=== PATIENT | male | born 1970 | race Two or more races ===

== ENCOUNTER 2016-11-12 07:58 | Day surgery (SDC) | payer BC ==
--- NOTE | 2016-11-11 19:29 | Pre-op HX & Phy Repo 2 SIG ---
DATE OF ADMISSION: 11/12/2016 DATE OF SURGERY: 11/12/2016. REASON FOR ADMISSION: Gallstones. HISTORY OF PRESENT ILLNESS: This 46-year-old white male developed problems with upper abdominal pain one week ago while visiting in [facility]. He went to the [facility] emergency room where he was found to have gallstones. The patient returned to [place]. He went to [facility] emergency room five days ago where he underwent an extensive workup. He was found to have cholelithiasis. There were some elevation in his pancreatic enzymes and on ultrasound of the abdomen confirmed the presence of multiple gallstones. The gallbladder wall was measured at [address] scan of the abdomen was unremarkable. He underwent an MRI of the abdomen that is an MRCP, which showed no findings to suggest pancreatitis. There were no filling defects in the common bile duct. The patient has a history of gastric bypass in 2000. He underwent a revision of the bypass in 2008 at [facility]. MEDICATIONS: Glucophage 1000 mg b.i.d., Januvia 100 mg, enalapril 20 mg daily, metoprolol 25 mg b.i.d., Lipitor 20 mg daily, duloxetine 60 mg daily, and levothyroxine 0.125 mg daily. ALLERGIES: Vicodin. SOCIAL HISTORY: Tobacco, one half pack per day for 20 years. Alcohol, none. 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 FAMILY HISTORY: The patient's father of renal cell carcinoma. He had a history of hypertension. The patient's mother has heart disease. REVIEW OF SYSTEMS: Essentially negative. He has occasional headaches. PHYSICAL EXAMINATION: GENERAL: The patient is a well-developed and well-nourished white male, in no acute distress. HEENT: Normocephalic. Pupils are equal and reactive to light. There was no scleral icterus. NECK: Supple without adenopathy. LUNGS: Clear. HEART: Regular rhythm without murmurs or gallops. ABDOMEN: Abdomen was protuberant. There are healed laparoscopy scars. There was mild tenderness in the right upper quadrant. Munoz's sign was slightly positive in right upper quadrant. There were no palpable masses. EXTREMITIES: No clubbing, cyanosis, or edema. Peripheral pulses intact. IMPRESSION: 1. Symptomatic cholelithiasis. 2. Status post gastric bypass. PLAN: The patient will need to undergo a laparoscopic cholecystectomy, possible open cholecystectomy. The nature, risks and benefits of the procedure were explained. Deven Gary M.D. DR: RUBINA JOB#: [id number] CC:
[~2016-11-12] VITALS: Ht 190.5 cm; Wt 113.4 kg
[2016-11-12] VITALS (14 sets, daily range): BP systolic 113–143; BP diastolic 69–82
[~2016-11-12 07:58] MED LIST: CITALOPRAM HBR40 M1 ORAL; CYMBALTA60 MG ORAL; JANUVIA100 MG ORAL; LEVOTHYROXINE25 MCG ORAL; LIPITOR80 MG ORAL; METOPROLOL SUCC50 MG ORAL
[2016-11-12] MEDS ORDERED: ENALAPRIL MALEA20 MG ORAL (08:26)
--- NOTE | 2016-11-12 09:06 | Pre-Procedure Note/Attestation ---
Pre-Procedure Note/Attestation Complete Prior to Procedure Planned Procedure: not applicable Procedure Narrative: laparoscopic cholecystectomy, possible open cholecystectomy Indications for Procedure Pre-Operative Diagnosis: cholelithiasis Attestation I attest that I discussed the nature of the procedure; its benefits; risks and complications; and alternatives (and the risks and benefits of such alternatives ), prior to the procedure, with the patient (or the patient's legal retail customer service representative). I attest that, if there was a reasonable possibility of needing a blood transfusion, the patient (or the patient's legal retail customer service representative) was given the [facility] standardized written summary, pursuant to the Dicks[place] Blood Safety Act ([place] Health and Safety Code # 1645, as amended). I attest that I re-evaluated the patient just prior to the surgery and that there has been no change in the patient's H&P, except as documented below:none Deven Gary MD November 12, 2016 09:06
[2016-11-12] MEDS ORDERED: Propofol 10mg/ml 20ml IV ONE (09:15)
[2016-11-12] MEDS ORDERED: Morphine Sulfate 10mg/ml Inj ONE (09:45)
[2016-11-12] MEDS ORDERED: Succinylcholine 20mg/ml 10ml vial ONE (09:45)
[2016-11-12] MEDS ORDERED: Zemuron 50mg/5ml Inj IV ONE (09:45)
[2016-11-12] MEDS ORDERED: Midazolam 2mg/2ml Inj ONE (09:45)
[2016-11-12] MEDS ORDERED: Sterile Water Irrig 1000ml IRRIG ONE (09:45)
[2016-11-12] MEDS ORDERED: fentaNYL 100 mcg/2 mL IV ONE (09:45)
[2016-11-12] MEDS ORDERED: Ketorolac 30mg Inj ONE (09:45)
[2016-11-12] MEDS ORDERED: Labetalol 5mg/ml 20ml vial IV ONE (09:45)
[2016-11-12] MEDS ORDERED: LR 1000ml ONE (09:45)
[2016-11-12] MEDS ORDERED: NS Irrig 1000ml ONE (09:45)
[2016-11-12] MEDS ORDERED: Bupivacaine w/Epi 0.25% 30ml Vial INJ ONE (09:47)
[2016-11-12] MEDS ORDERED: LR 1000ml 1,000 ML IVLG SCH (10:37)
--- NOTE | 2016-11-12 10:37 | Anethesia Preoperative Eval ---
Anesthesia Pre-op PMH/ROS General Date of Evaluation: November 12, 2016 Time of Evaluation: 09:40 Anesthesiologist: Estrellita ASA Score: ASA 3 Mallampati Score Class I : Soft palate, uvula, fauces, pillars visible Class II: Soft palate, uvula, fauces visible Class III: Soft palate, base of uvula visible Class IV: Only hard plate visible Mallampati Classification: Class III Surgeon: Abdirahman Diagnosis: Symptomatic cholelithyasis Surgical Procedure: Laparoscopic cholecystectomy Anesthesia History: none Family History: no anesthesia problems Allergies: Coded Allergies: ACETAMINOPHEN (Verified Allergy, Severe, stomach upset, head spinning, 11/11) HYDROCODONE (Verified Allergy, Severe, stomach upset, head spinning, ) Medications: see eMAR Past Medical History Cardiovascular: Reports: HTN, Denies: CAD, [place], arrhythmia, other, valve dz Pulmonary: Reports: SAM, Denies: COPD, asthma, other Gastrointestinal/Genitourinary: Reports: GERD, Denies: CRI, ESRD, other Neurologic/Psychiatric: Denies: CVA, TIA, dementia, depression/anxiety, other Endocrine: Reports: DM - poorly controled, hypothyroidism, Denies: other, steroids HEENT: Denies: [place] (L), [place] (R), cataract (L), cataract (R), glaucoma, other Hematology/Immune: Reports: anemia, Denies: DVT, bleeding disorder, other Musculoskeletal/Integumentary: Denies: DDD, DJD, OA, RA, edema, other Other: obesity PMH Narrative: as above PSxH Narrative: Gastric bypass Anesthesia Pre-op Phys. Exam Physician Exam Last Vital Signs Date Time Temp Pulse Resp B/P Pulse Ox O2 Delivery O2 Flow Rate FiO2 11/12/16 08:20 98.6 73 24 119/79 100 Room Air Constitutional: NAD Neurologic: CN 2-12 intact Cardiovascular: RRR, no M/R/G Respiratory: CTA Gastrointestinal: other - obesity Airway Exam Mallampati Score: Class III MO: limited Neck: short ROM: full Teeth: intact Dentures: no lower, no upper Anesthesia Pre-op A/P Labs see chart Studies Pre-op Studies: EKG - NSR Risk Assessment & Plan Assessment: ASA 3 Plan: GA with ETT Status Change Before Surgery: No Pre-Antibiotics Drug: Ancef 2 gr. Given Within 1 Hr of Incision: Yes Time Given: 10:05 MATT VELEZ M.D. November 12, 2016 10:37
[2016-11-12] MEDS ORDERED: Meperidine 25mg/0.5ml Inj IV PRN (10:45)
[2016-11-12] MEDS ORDERED: Hydromorphone 0.5mg/0.5ml inj IVP PRN (10:45)
[2016-11-12] MEDS ORDERED: Ketorolac 30mg Inj IV PRN (10:45)
[2016-11-12] MEDS ORDERED: Midazolam 2mg/2ml Inj IVP PRN (10:45)
--- NOTE | 2016-11-12 11:24 | Immediate Post-Op Evaluation ---
Immediate Post-Op Evalulation Immediate Post-Op Evalulation Procedure: Laparoscopic cholecystectomy Date of Evaluation: November 12, 2016 Time of Evaluation: 11:23 IV Fluids: 1200 Blood Products: none Estimated Blood Loss: min Urinary Output: none Blood Pressure Systolic: 116 Blood Pressure Diastolic: 54 Pulse Rate: 82 Respiratory Rate: 20 O2 Sat by Pulse Oximetry: 98 Temperature (Fahrenheit): 98.4 Pain Score (1-10): 2 Nausea: No Vomiting: No Complications none Patient Status: reacts, patent, extubated, none Hydration Status: adequate MATT VELEZ M.D. November 12, 2016 11:24
--- NOTE | 2016-11-12 11:28 | Brief Operative Note ---
Immediate Post Operative Note Operative Note Pre-op Diagnosis: cholelithiasis Procedure: laparoscopic cholecystectomy Post-op Diagnosis: cholelithiasis Surgeon: Arturo Gary MD Hardware Design Engineer: Eliazar Bates MD Anesthesiologist: Sheron Haro MD Anesthesia: general Specimen: yes Complications: none Condition: stable Estimated Blood Loss: minimal Drains: none Implant(s) used?: No Deven Gary MD November 12, 2016 11:28
[2016-11-12] MEDS ORDERED: Norco 5mg/325mg tab ORAL PRN (11:30)
[2016-11-12] MEDS ORDERED: HYDROmorphone 1mg/ml Carpuject SUBQ PRN (11:30)
--- NOTE | 2016-11-12 12:07 | 48 Hour Post Anesthesia Eval ---
Post Anesthesia Evaluation Procedure: Laparoscopic cholecystectomy Date of Evaluation: November 12, 2016 Time of Evaluation: 12:06 Blood Pressure Systolic: 118 0: 74 Pulse Rate: 78 Respiratory Rate: 20 Temperature (Fahrenheit): 97.6 O2 Sat by Pulse Oximetry: 98 Airway: patent Nausea: No Vomiting: No Pain Intensity: 2 Hydration Status: adequate Cardiopulmonary Status: stable Mental Status/LOC: patient returned to baseline Follow-up Care/Observations: n/a Post-Anesthesia Complications: none Follow-up care needed: ready to discharge MATT VELEZ M.D. November 12, 2016 12:07
[2016-11-12] MEDS ORDERED: Meperidine 50mg/ml Inj IVP PRN (12:45)
[2016-11-12] MEDS ORDERED: D5 1/2NS 1,000 ML IV SCH (16:01)
--- NOTE | 2016-11-12 18:39 | Operative Note - Dictated ---
DATE OF OPERATION: 11/12/2016 PREOPERATIVE DIAGNOSES: Cholelithiasis and history of pancreatitis. POSTOPERATIVE DIAGNOSES: Cholelithiasis and history of pancreatitis. PROCEDURE: Laparoscopic cholecystectomy. SURGEON: Deven Gary M.D. TUMBLING AND ROLLING SUPERVISOR: Zulma Bates M.D. ANESTHESIA: General endotracheal. ANESTHESIOLOGIST: Que Haro M.D. INDICATIONS FOR SURGERY: This 46-year-old, white male developed problems with upper abdominal pain approximately nine days ago. He was seen in the [facility] emergency room six days ago where studies revealed cholelithiasis. There was some elevation of serum lipase. He underwent an MRCP from the emergency room that showed no filling defects in the common bile duct. There were no changes anatomically to suggest acute pancreatitis. The patient's pain improved as he was kept on a low fat diet. He was advised to undergo a laparoscopic cholecystectomy. The nature, risks, and benefits of the procedure were explained. OPERATIVE FINDINGS: Exploration of the abdominal cavity revealed no ascites. There were some adhesions in the left upper quadrant from a previous gastric bypass. There were some small adhesions from the omentum to the undersurface of the right lobe of the liver. The gallbladder had a pliable wall. There were multiple stones in the gallbladder. The cystic duct was not dilated. No abnormalities are noted on the small bowel. There was evidence of a right inguinal hernia present. OPERATIVE TECHNIQUE: With the patient in the supine position after induction of adequate general endotracheal anesthesia, the abdomen was prepped and draped in sterile fashion. A time-out was called. A small transverse incision was made just above the umbilicus. A Veress needle was introduced into the abdominal cavity. The intraperitoneal position was confirmed by saline instillation and the drop test. The abdomen was insufflated with 5 liters of carbon dioxide. The Veress needle was removed. A 5 mm trocar was introduced. The abdomen was inspected with a 30-degree angle 5 mm laparoscope and an 11 mm trocar was introduced in the subxiphoid region slightly to the right of the midline. Two 5 mm ports were introduced in the right mid abdomen, one near the anterior axillary line and one near the midclavicular line. Through the lateral 5 mm port, a ratcheted grasper was used to elevate the fundus of the gallbladder. Numerous omental adhesions to the undersurface of the right lobe of the liver were taken down by electrocautery and sharp dissection. The neck of the gallbladder was then grasped through the 5 mm port with the help of the ratcheted grasper. The peritoneum along the neck of the gallbladder was carefully incised with electrocautery and blunt dissection. The portal structures were identified. The cystic artery was dissected away from the cystic duct. The cystic artery was doubly hemoclipped and divided. The cystic duct was then identified. The lateral peritoneal attachments to the neck of the gallbladder were incised with electrocautery in order to gain greater mobility onto the cystic duct. With the cystic duct dissected, the structure was doubly hemoclipped and divided. The gallbladder was removed from the liver bed by blunt dissection and electrocautery. The gallbladder was removed through the subxiphoid port with the help of an EndoCatch apparatus. The abdomen was again inspected. There was no evidence of hemorrhage from the liver bed. The subhepatic space was irrigated and aspirated. There was no evidence of hemorrhage nor bile leak. The lower abdomen was inspected by passing the laparoscope through the subxiphoid port. The trocars were removed under laparoscopic visualization. The pneumoperitoneum was reversed. The subxiphoid incision was closed with an 0 Vicryl fascial suture followed by a running 4-0 Monocryl subcuticular stitch. The remaining 5 mm incisions were closed with interrupted 4-0 Monocryl subcuticular sutures. The puncture wounds were injected with 0.25 Marcaine with epinephrine solution. Sterile dressings were applied. The patient tolerated the procedure well and was returned to the recovery room in stable condition. Estimated blood loss was less than 10 mL. Deven Gary M.D. DR: HILARY JOB#: [id number] CC:
== END 2016-11-12 14:05 | disposition home or self-care (01) ==
LOC: SUR 07:58
DX: K80.10 Calculus of gallbladder with chronic cholecystitis without obstruction (principal); E11.40 Type 2 diabetes mellitus with diabetic neuropathy, unspecified; Z79.84 Long term (current) use of oral hypoglycemic drugs; I10 Essential (primary) hypertension; E03.9 Hypothyroidism, unspecified; D64.9 Anemia, unspecified; K21.9 Gastro-esophageal reflux disease without esophagitis; G47.33 Obstructive sleep apnea (adult) (pediatric); F32.9 Major depressive disorder, single episode, unspecified; E66.9 Obesity, unspecified; Z68.33 Body mass index [BMI] 33.0-33.9, adult; F17.210 Nicotine dependence, cigarettes, uncomplicated; Z98.84 Bariatric surgery status; Z88.6 Allergy status to analgesic agent; Z88.5 Allergy status to narcotic agent
CPT/HCPCS: 47562; 82962; J0330; J0690; J1885; J2250; J2270; J2704; J3010; J7120; 94003; 94150

== ENCOUNTER 2017-01-12 07:19 | Day surgery (SDC) | payer BC ==
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
[2017-01-12] VITALS (10 sets, daily range): BP systolic 110–136; BP diastolic 64–81
[~2017-01-12] VITALS: Ht 190.5 cm; Wt 113.4 kg
[~2017-01-12 07:19] MED LIST changes: +ENALAPRIL MALEA20 MG ORAL
[2017-01-12] MEDS ORDERED: LR 1000ml 1,000 ML IV SCH (07:45)
[2017-01-12] MEDS ORDERED: GLUCOPHAGE1000 MG ORAL (07:58)
[2017-01-12] MEDS ORDERED: LR 1000ml 1,000 ML IVLG SCH (08:56)
--- NOTE | 2017-01-12 08:58 | Anethesia Preoperative Eval ---
Anesthesia Pre-op PMH/ROS General Date of Evaluation: Jan 12, 2017 Time of Evaluation: 09:41 Anesthesiologist: Laury ASA Score: ASA 3 Mallampati Score Class I : Soft palate, uvula, fauces, pillars visible Class II: Soft palate, uvula, fauces visible Class III: Soft palate, base of uvula visible Class IV: Only hard plate visible Mallampati Classification: Class II Surgeon: Abdirahman Diagnosis: [facility] Surgical Procedure: RIHR with Mesh Anesthesia History: none Family History: no anesthesia problems Allergies: Coded Allergies: ACETAMINOPHEN (Verified Allergy, Severe, head spinning,upset stomach, ) HYDROCODONE (Verified Allergy, Severe, head spinning,upset stomach, 01/12/17 ) Medications: see eMAR Past Medical History Cardiovascular: Reports: HTN, other - HL Gastrointestinal/Genitourinary: Reports: GERD Neurologic/Psychiatric: Reports: CVA Endocrine: Reports: DM, hypothyroidism Other: obesity - BMI 31 PSxH Narrative: Cholecystectomy, Gastric Bypass Anesthesia Pre-op Phys. Exam Physician Exam Last Vital Signs Date Time Temp Pulse Resp B/P Pulse Ox O2 Delivery O2 Flow Rate FiO2 01/12/17 07:47 98.5 74 20 136/80 98 Room Air Constitutional: NAD Neurologic: CN 2-12 intact Cardiovascular: RRR Respiratory: CTA Gastrointestinal: S/NT/ND Airway Exam Mallampati Score: Class II MO: limited ROM: limited Teeth: missing, intact Anesthesia Pre-op A/P Risk Assessment & Plan Assessment: ASA 3 Plan: GA, BIS, Glidescope Status Change Before Surgery: No Pre-Antibiotics Dru Grams Ancef IV Given Within 1 Hr of Incision: Yes Time Given: 09:51 Garett Schaeffer MD Jan 12, 2017 08:58
--- NOTE | 2017-01-12 08:59 | Immediate Post-Op Evaluation ---
Immediate Post-Op Evalulation Immediate Post-Op Evalulation Procedure: RIHR Date of Evaluation: Jan 12, 2017 Time of Evaluation: 11:59 IV Fluids: 700 LR Blood Products: 0 Estimated Blood Loss: 10 Urinary Output: 0 Blood Pressure Systolic: 133 Blood Pressure Diastolic: 73 Pulse Rate: 101 Respiratory Rate: 16 O2 Sat by Pulse Oximetry: 99 Temperature (Fahrenheit): 98.5 Pain Score (1-10): 2 Nausea: No Vomiting: No Complications 0 Patient Status: awake, reacts, patent, extubated, none Hydration Status: adequate Dru Grams Ancef IV Given Within 1 Hr of Incision: Yes Time Given: 09:51 Garett Schaeffer MD Jan 12, 2017 08:59
[2017-01-12] MEDS ORDERED: DiphenhydrAMINE 50mg/ml Inj IVP PRN (09:00)
[2017-01-12] MEDS ORDERED: Ketorolac 30mg Inj IV PRN (09:00)
[2017-01-12] MEDS ORDERED: Ketorolac 60mg Inj IV PRN (09:00)
[2017-01-12] MEDS ORDERED: fentaNYL 100 mcg/2 mL IV PRN (09:00)
[2017-01-12] MEDS ORDERED: Midazolam 2mg/2ml Inj IVP PRN (09:00)
[2017-01-12] MEDS ORDERED: Metoclopramide 10mg/2ml Inj IVP PRN (09:00)
[2017-01-12] MEDS ORDERED: LORazepam Inj 2mg/ml 1ml IV PRN (09:00)
[2017-01-12] MEDS ORDERED: Meperidine 25mg/0.5ml Inj IV PRN (09:00)
[2017-01-12] MEDS ORDERED: Atropine Inj 1mg/10ml Syr IV PRN (09:00)
[2017-01-12] MEDS ORDERED: Nimbex 2mg/ml Inj 10ML IVP ONE (09:45)
[2017-01-12] MEDS ORDERED: Glycopyrrolate 0.2mg/ml 1ml Vial ONE (09:45)
[2017-01-12] MEDS ORDERED: Propofol 10mg/ml 20ml IV ONE (09:45)
[2017-01-12] MEDS ORDERED: Neostigmine 1mg/ml 10ml Inj ONE (09:45)
[2017-01-12] MEDS ORDERED: Lidocaine 1% MPF 10mg/ml 5ml ONE (09:45)
[2017-01-12] MEDS ORDERED: Sterile Water Irrig 1000ml IRRIG ONE (09:45)
[2017-01-12] MEDS ORDERED: LR 1000ml ONE (09:45)
[2017-01-12] MEDS ORDERED: Midazolam 2mg/2ml Inj ONE (09:45)
[2017-01-12] MEDS ORDERED: Bupivacaine w/Epi 0.25% 30ml Vial INJ ONE (09:46)
[2017-01-12] MEDS ORDERED: NS Irrig 1000ml IRRIG ONE (09:46)
--- NOTE | 2017-01-12 09:52 | Pre-Procedure Note/Attestation ---
Pre-Procedure Note/Attestation Complete Prior to Procedure Procedure Narrative: right inguinal hernia repair with mesh Indications for Procedure Pre-Operative Diagnosis: right inguinal hernia Attestation I attest that I discussed the nature of the procedure; its benefits; risks and complications; and alternatives (and the risks and benefits of such alternatives ), prior to the procedure, with the patient (or the patient's legal installation service representative). I attest that, if there was a reasonable possibility of needing a blood transfusion, the patient (or the patient's legal installation service representative) was given the [facility] standardized written summary, pursuant to the [place] Blood Safety Act ([place] Health and Safety Code # 1645, as amended). I attest that I re-evaluated the patient just prior to the surgery and that there has been no change in the patient's H&P, except as documented below: none Deven Gary MD Jan 12, 2017 09:52
--- NOTE | 2017-01-12 11:49 | 48 Hour Post Anesthesia Eval ---
Post Anesthesia Evaluation Procedure: RIHR Date of Evaluation: Jan 12, 2017 Time of Evaluation: 14:06 Blood Pressure Systolic: 138 0: 76 Pulse Rate: 84 Respiratory Rate: 18 Temperature (Fahrenheit): 98.5 O2 Sat by Pulse Oximetry: 99 Airway: patent Nausea: No Vomiting: No Pain Intensity: 2 Hydration Status: adequate Cardiopulmonary Status: Stable Mental Status/LOC: patient returned to baseline Follow-up Care/Observations: 0 Post-Anesthesia Complications: 0 Follow-up care needed: ready to discharge Garett Schaeffer MD Jan 12, 2017 11:49
--- NOTE | 2017-01-12 11:55 | Brief Operative Note ---
Immediate Post Operative Note Operative Note Pre-op Diagnosis: right inguinal hernia Procedure: right inguinal hernia repair with mesh Post-op Diagnosis: direct right inguinal hernia Surgeon: Arturo Gary MD Anesthesiologist: Megan Schaeffer MD Anesthesia: general Specimen: yes - Lipoma of the cord Complications: none Estimated Blood Loss: minimal Drains: none Implant(s) used?: Yes - prolene mesh Deven Gary MD Jan 12, 2017 11:55
[2017-01-12] MEDS ORDERED: HYDROmorphone 1mg/ml Carpuject SUBQ PRN (15:30)
[2017-01-12] MEDS ORDERED: D5 1/2NS 1,000 ML IV SCH (15:30)
[2017-01-12] MEDS ORDERED: Tylenol #3 tab (300mg/30mg) ORAL PRN (15:30)
[2017-01-12] MEDS ORDERED: Norco 5mg/325mg tab ORAL PRN (15:30)
--- NOTE | 2017-01-12 16:16 | Operative Note - Dictated ---
PREOPERATIVE DIAGNOSIS: Right inguinal hernia. POSTOPERATIVE DIAGNOSIS: Right inguinal hernia, direct. PROCEDURE: Right inguinal hernia repair with mesh. SURGEON: Deven Gary M.D. ANESTHESIA: General endotracheal. ANESTHESIOLOGIST: Garett Schaeffer M.D. INDICATIONS FOR SURGERY: This 46-year-old white male underwent a laparoscopic cholecystectomy approximately six weeks ago. During the procedure, he was found to have a right inguinal hernia. The patient reported some discomfort in the right groin and he was advised to undergo a right inguinal hernia repair with mesh. The nature, risks, and benefits of the procedure were explained. OPERATIVE FINDINGS: Exploration of the right groin revealed extensive subcutaneous fat. The inguinal canal had a large lipoma of the spermatic cord. The fascial floor was quite attenuated consistent with a direct hernia. OPERATIVE TECHNIQUE: With the patient in the supine position and after induction of adequate general endotracheal anesthesia, both groins were prepped and draped in sterile fashion. A time-out was called. The right ilioinguinal nerve block was performed using 0.25 Marcaine with epinephrine solution. An incision was made two fingerbreadths above the right inguinal ligament and parallel to the structure of the subcutaneous tissue was divided by sharp dissection with a scalpel. Several oozing points were cauterized. The thickened subcutaneous fat was divided slowly with electrocautery. A traversing vein was clamped, divided, and ligated with 2-0 Vicryl. The aponeurosis of the external oblique was identified and dissected. There was a bulging defect at the level of the external ring. The external oblique was incised just beyond the level of the external ring. The spermatic cord was mobilized to the level of the pubic tubercle and retracted with a Rajiv drain. The cord was carefully skeletonized. There was a large lipoma noted. The lipoma was carefully dissected and divided into 2 portions. Each portion was clamped and excised at the level of the internal ring. The base of the lipoma was suture ligated with 2-0 Vicryl. The fascial floor was then inspected and was found to be quite attenuated. A strip of Prolene mesh was placed on the fascial floor. The mesh was dissected lateral to the cord placing one wing above and one wing below the cord. The medial aspect of the mesh was tacked to the pubic tubercle with a 2-0 Prolene suture. The inferior edge of the mesh was tacked to the shelving edge of the inguinal ligament with running 2-0 Prolene suture. The superior edge of the mesh was tacked to the tendinous edge of transversalis with a running 2-0 Prolene suture. The lateral to the cord, the two wings were tacked to the internal oblique muscle, thus completing the repair. The newly created internal ring was inspected and found to be somewhat patulous, this was repaired with a 2-0 Prolene horizontal mattress sutures just medial to the spermatic cord. The ilioinguinal nerve was identified and carefully dissected away from the mesh and the external oblique layer was reapproximated with a running 2-0 Vicryl suture. Adrianne's fascia was closed with interrupted 3-0 Vicryl sutures. The skin was closed with a running 4-0 Vicryl subcuticular stitch. Sterile dressings were applied. The patient tolerated the procedure well. Inspection of the scrotum revealed no impingement on the right testicle. Deven Gary M.D. DR: JAUN JOB#: [id number] CC:
== END 2017-01-12 15:00 | disposition home or self-care (01) ==
LOC: SUR 07:19
DX: K40.90 Unilateral inguinal hernia, without obstruction or gangrene, not specified as recurrent (principal); D17.6 Benign lipomatous neoplasm of spermatic cord; E11.9 Type 2 diabetes mellitus without complications; Z79.84 Long term (current) use of oral hypoglycemic drugs; I10 Essential (primary) hypertension; E03.9 Hypothyroidism, unspecified; E78.5 Hyperlipidemia, unspecified; K21.9 Gastro-esophageal reflux disease without esophagitis; F17.210 Nicotine dependence, cigarettes, uncomplicated; Z86.73 Personal history of transient ischemic attack (TIA), and cerebral infarction without residual deficits; Z88.5 Allergy status to narcotic agent; Z98.84 Bariatric surgery status; Z90.49 Acquired absence of other specified parts of digestive tract; Z88.6 Allergy status to analgesic agent
CPT/HCPCS: 49505; 82962; C1781; J0690; J1170; J2250; J2405; J2704; J2710; J7120; 94003; 94150